=== PATIENT | male | born 1985 | race Two or more races ===

== ENCOUNTER 2022-04-23 19:04 | Emergency (ER) | payer SELFPAY ==
[~2022-04-23] VITALS: Ht 175.3 cm; Wt 88.7 kg
[2022-04-23] MEDS ORDERED: ACETAMINOPHEN 325 MG TAB PO ONE (20:15)
[2022-04-24] MEDS ORDERED: PROM1SOL4 PO
[2022-04-24] MEDS ORDERED: AMOX-277 PO
[2022-04-24 00:05] VITALS: BP 139/84
== END 2022-04-24 00:07 | disposition home or self-care (01) ==
LOC: ER 19:04
DX: J06.9 Acute upper respiratory infection, unspecified (principal); H66.93 Otitis media, unspecified, bilateral; F12.10 Cannabis abuse, uncomplicated; Z90.49 Acquired absence of other specified parts of digestive tract; Z20.822 Contact with and (suspected) exposure to COVID-19
CPT/HCPCS: 36415; 71046; 87426; 87804